=== PATIENT | male | born 1985 | race Caucasian/White ===

== ENCOUNTER → 2020-05-16 | Outpatient (CLI) | payer OTHER ==
[~2020-05-16] MED LIST: OXYC-325 PO
== END ==
LOC: LAB 14:04
PROVIDERS: ATTEND Surgery
DX: Z01.812 Encounter for preprocedural laboratory examination (principal); K40.90 Unilateral inguinal hernia, without obstruction or gangrene, not specified as recurrent; Z20.828 Contact with and (suspected) exposure to other viral communicable diseases
CPT/HCPCS: U0003-CS

== ENCOUNTER 2020-05-19 08:13 | Day surgery (SDC) | payer OTHER ==
[~2020-05-19] VITALS: Ht 185.4 cm; Wt 71.5 kg
[~2020-05-19 08:13] MED LIST changes: +ACETAMINOPHEN 500 MG TABLET PO PRN; +BUPIVACAINE-EPI 0.25%-1:200000 MPF 30 ML VIAL. INJ ONE; +HYDROmorphone 2 MG/ML VIAL IV PRN; +IV RINGERS,LACTATED 1000ML 1,000 ML IV SCH; +MORPHINE SULFATE 2 MG/ML VIAL. IV PRN; +ONDANSETRON PF 4 MG/2 ML VIAL. IV PRN; -OXYC-325 PO; +PROCHLORPERAZINE 10 MG/2 ML VIAL. IV PRN; +ROCURONIUM 50 MG/5 ML VIAL. ONE; +ceFAZolin SODIUM IV Push 1 GM VIAL. IVP PRN; +fentaNYL PF VIAL 100 MCG/2 ML VIAL IV PRN; +fentaNYL PF VIAL 100 MCG/2 ML VIAL ONE
[2020-05-19] MEDS ORDERED: MIDAZOLAM HCL/PF 2 MG/2 ML VIAL. ONE (08:14)
[2020-05-19] MEDS ORDERED: ONDANSETRON PF 4 MG/2 ML VIAL. ONE (08:14)
[2020-05-19] MEDS ORDERED: LIDOCAINE 2% PF 5 ML VIAL. ONE (08:14)
[2020-05-19] MEDS ORDERED: PROPOFOL 10 MG/ML (20ML) VIAL. IV ONE (08:14)
[2020-05-19] MEDS ORDERED: DEXAMETHASONE SOD PHOS 4 MG/ML VIAL ONE (08:14)
[2020-05-19] MEDS ORDERED: BUPIVACAINE MPF 0.25% 30 ML VIAL. ONE (09:18)
[2020-05-19] MEDS ORDERED: MINERAL OIL for SURGERY 10 ML VIAL. MC ONE (10:41)
[2020-05-19] MEDS ORDERED: BUPIVACAINE-EPI 0.25%-1:200000 MPF 30 ML VIAL. INJ ONE (11:00)
[2020-05-19] MEDS ORDERED: NEOSTIGMINE METHYLSULFATE 5 MG/5 ML SYRINGE. ONE (11:21)
[2020-05-19] MEDS ORDERED: GLYCOPYRROLATE 1 MG/5 ML VIAL. ONE (11:21)
[2020-05-19] MEDS ORDERED: KETOROLAC 30 MG/ML VIAL. ONE (11:22)
[2020-05-19] MEDS ORDERED: SEVOFLURANE 61 TO 120 MINUTES. IH ONE (11:25)
--- NOTE | 2020-05-19 11:31 | PDOC4 ---
Operative Note Operative Note Date: 1015 at 1128 Preoperative diagnosis: Left inguinal hernia Postoperative diagnosis: Same Procedure: Robotic assisted laparoscopic left inguinal hernia repair with mesh Surgeon: Alireza Specimen: None Dictation: Patient is 34-year-old male has had pain in the left groin and exam consistent with a left inguinal hernia. The procedure of robotic assisted laparoscopic left inguinal hernia repair with mesh was explained to the patient detail was benefits were also discussed including bleeding infection injury to intra-abdominal contents possible necessitating further or open operations alternatives to this procedure also discussed with the patient who seemed to understand and gave both verbal and written consent to have the procedure performed. Patient was taken to the operating room placed in the supine position general anesthesia was initiated once patient was sleeping in bed was placed in low lithotomy positioning and his abdomen was prepped and draped usual sterile fashion using ChloraPrep. An area just above the umbilicus was injected quarter percent Marcaine with epinephrine incision was made 11 blade scalpel and a varies needle was placed within the abdomen creating pneumoperitoneum once this complete a millimeter da Álvaro port was placed and the camera was placed within the abdomen which was inspected was noted there is moderate sized hernia on the left side right side was normal. 8 mm da Álvaro port was placed in the left midabdomen and an 8 mm da Álvaro port was placed in the right midabdomen. The da Álvaro robot was brought and docked all port sites surgeon went to the robotic console using a grasper and Endo Jeff scissors the peritoneum on the left groin was incised and a window propagated inferiorly bluntly dissecting tissues and reducing the hernia sac. A large left sided Bard 3D max mesh was placed over the hernia defect the peritoneum was then closed with a running 2 OV lock absorbable suture. The da Álvaro robot was undocked from all port sites pneumoperitoneum was reduced all ports removed the port sites were all closed with 4 subcuticular Monocryl Mastisol Steri-Strips and island dressings were applied. Patient was awakened and extubated operating room taken to recovery in stable condition all sponge instrument needle counts listed as correct estimated blood loss 5 mL GRADY BALDWIN MD May 19, 2020 11:31
--- NOTE | 2020-05-19 11:33 | DISCH ---
DISCHARGE INSTRUCTIONS Condition on Discharge Condition on Discharge: Stable Activity After Discharge Activity Instructions for Disc: Avoid exertion Other activity instructions: No lifting more than 20 pounds for 2 weeks Diet after Discharge Diet after Discharge: Regular Wound Incision Care Other wound/incision instructi: May shower in 24 hours Contacting the [facility] after DC Call your doctor for: If your condition worsens Follow-Up Follow up with: Dr. Baldwin in 2 weeks GRADY BALDWIN MD May 19, 2020 11:33
[2020-05-19] MEDS ORDERED: oxyCODONE/APAP 5/325 1 TAB TABLET PO ONE ×2 (12:00)
[2020-05-19] MEDS ORDERED: OXYC-325 PO (12:03)
[2020-05-19 12:10] VITALS: BP 136/72
== END 2020-05-19 13:00 | disposition home or self-care (01) ==
LOC: SURG 08:13 → EDUNIT# 09:45 → SURG 13:00
PROVIDERS: ATTEND Surgery
DX: K40.90 Unilateral inguinal hernia, without obstruction or gangrene, not specified as recurrent (principal); Z87.891 Personal history of nicotine dependence; Z79.899 Other long term (current) drug therapy
CPT/HCPCS: 49650; C1781; J0690; J1100; J1885; J2250; J2405; J2704; J2710; J3010; J3490; S2900